=== PATIENT | female | born 1930 | race Two or more races ===

== ENCOUNTER 2016-06-26 14:10 | Inpatient (IN) | payer MEDICAID, MEDICARE ==
[~2016-06-26] VITALS: Ht 157.5 cm; Wt 65.8 kg
[2016-06-26] MEDS ORDERED: KETOROLAC TROMETHAMINE INJ 30 MG/ML VIAL ONE (14:20)
[2016-06-26] MEDS ORDERED: DIAZEPAM 5 MG TABLET ONE (14:20)
[2016-06-26] MEDS ORDERED: CARV25TA2 PO (14:56)
[2016-06-26] MEDS ORDERED: LEVO25TA9 PO (14:56)
[2016-06-26] MEDS ORDERED: NITR100C15 PO (14:56)
[2016-06-26] MEDS ORDERED: FURO-144 PO (14:56)
[2016-06-26] MEDS ORDERED: LISI-603 PO (14:56)
[2016-06-26] MEDS ORDERED: ACET-2605 PO (14:56)
[2016-06-26] MEDS ORDERED: ASPI-991 PO (14:56)
[2016-06-26] MEDS ORDERED: BISA10SU8 RC (14:56)
[2016-06-26] MEDS ORDERED: LORA0.5T PO (14:56)
[2016-06-26] MEDS ORDERED: AMLO2.5T PO (14:56)
[2016-06-26] MEDS ORDERED: OMEP20CA10 PO (14:56)
[2016-06-26] MEDS ORDERED: MAGN400O6 PO (14:56)
[2016-06-26] MEDS ORDERED: DONE5TAB3 PO (14:56)
[2016-06-26] MEDS ORDERED: ALEN70TA3 PO (14:56)
[2016-06-26] MEDS ORDERED: TRAM50TA2 PO (14:56)
[2016-06-26] MEDS ORDERED: SIMV20TA6 PO (14:56)
[2016-06-26] MEDS ORDERED: NA P133E RC (14:56)
[2016-06-26] MEDS ORDERED: ESCI10TA PO (14:56)
[2016-06-26] MEDS ORDERED: UBID100C13 PO (14:57)
[2016-06-26 15:23] LABS: BASOPHILS # (AUTO) 0.2 /CMM (0.0-0.2); BASOPHILS % (AUTO) 3.2 % (0.0-2.0); DIFF TOTAL % 100 %; EOSINOPHILS % (AUTO) 0.1 % (0.0-6.0); HEMATOCRIT 33 % (33-45); HEMOGLOBIN 10.6 g/dL (11.5-14.8); LYMPHOCYTES # (AUTO) 0.9 /CMM (0.8-4.8); LYMPHOCYTES % (AUTO) 11.8 % (20.0-44.0); MEAN CORPUSCULAR HEMOGLOBIN 29 PG (26.0-33.0); MEAN CORPUSCULAR HGB CONC 33 g/dl (31.0-36.0); MEAN CORPUSCULAR VOLUME 88 fL (82-100); MONOCYTES # (AUTO) 0.8 /CMM (0.1-1.30); MONOCYTES % (AUTO) 10.7 % (2.0-12.0); NEUTROPHILS # (AUTO) 5.9 /CMM (1.8-8.9); NEUTROPHILS % (AUTO) 74.2 % (43.0-81.0); PLATELET COUNT (AUTO) 311 /CMM (150-450); RED BLOOD CELL COUNT(AUTO) 3.73 MIL/uL (4.0-5.2); WHITE BLOOD COUNT (AUTO) 7.8 K/uL (4.3-11.0)
[2016-06-26] MEDS ORDERED: IV NS 0.9% 500 ML IV ONE (15:23)
[2016-06-26] MEDS ORDERED: IV SET PRIMARY PUMP SET 1 EA INFUS.SET MC ONE (15:23)
[2016-06-26 15:25] LABS: CALCIUM, SERUM 7.9 mg/dL (8.5-10.1); CREATININE 0.7 mg/dL (0.6-1.3); POTASSIUM 3.8 mmol/L (3.5-5.1)
[2016-06-26] MEDS ORDERED: IV NS 0.9% 500 ML BAG IV ONE (15:30)
[2016-06-26 15:31] LABS: ALBUMIN 1.8 g/dL (3.4-5.0); BILIRUBIN,DIRECT 0.1 mg/dL (0.0-0.2); BILIRUBIN,TOTAL 0.3 mg/dL (0.2-1.0); INDIRECT BILIRUBIN 0.2 mg/dL (0.0-1.1)
[2016-06-26 15:33] LABS: TROPONIN I 0.031 ng/mL (0.00-0.056)
[2016-06-26 15:36] LABS: INR 1.04 (0.87-1.13); PROTHROMBIN TIME 10.9 SECS (9.5-12.7)
[2016-06-26 15:47] LABS: LACTIC ACID 1.2 mmol/L (0.4-2.0)
[2016-06-26 15:52] LABS: ADD UA MICROSCOPIC YES; KETONES,URINE Negative (NEGATIVE); LEUKOCYTE ESTERASE ,URINE Large (NEGATIVE)
[2016-06-26 15:53] LABS: ADD URINE CULTURE YES
[2016-06-26] MEDS ORDERED: CEFTRIAXONE 1GM BAG (ER ONLY) 1 GM/50 ML PIGGYBACK IV ONE (17:30)
[2016-06-26] MEDS ORDERED: CEFTRIAXONE 1GM BAG (ER ONLY) 50 ML IV ONE (17:51)
[2016-06-26 18:00] VITALS: BP 142/82
[2016-06-26 20:00] VITALS: BP 124/62
[2016-06-26 22:00] VITALS: BP 124/62
[2016-06-27] VITALS (7 sets, daily range): BP systolic 115–133; BP diastolic 56–68
[2016-06-27] MEDS ORDERED: IV SET PRIMARY PUMP SET 1 EA INFUS.SET MC ONE (01:48)
[2016-06-27] MEDS: IV NS 0.9% 1,000 ML BAG IV SCH ×2 (01:56→13:41)
[2016-06-27] MEDS ORDERED: ACETAMINOPHEN ES 500 MG TABLET PO PRN ×2 (02:30→13:30)
[2016-06-27] MEDS ORDERED: TRAMADOL HCL 50 MG TABLET PO PRN (02:30)
[2016-06-27] MEDS ORDERED: ACETAMINOPHEN ES 500 MG TABLET ONE (04:38)
[2016-06-27 06:42] LABS: BASOPHILS % (AUTO) 0.2 % (0.0-2.0); DIFF TOTAL % 100 %; EOSINOPHILS % (AUTO) 0.1 % (0.0-6.0); HEMATOCRIT 30 % (33-45); HEMOGLOBIN 9.8 g/dL (11.5-14.8); LYMPHOCYTES # (AUTO) 0.5 /CMM (0.8-4.8); LYMPHOCYTES % (AUTO) 7.3 % (20.0-44.0); MEAN CORPUSCULAR HEMOGLOBIN 29 PG (26.0-33.0); MEAN CORPUSCULAR HGB CONC 33 g/dl (31.0-36.0); MEAN CORPUSCULAR VOLUME 89 fL (82-100); MONOCYTES # (AUTO) 0.6 /CMM (0.1-1.30); MONOCYTES % (AUTO) 8.2 % (2.0-12.0); NEUTROPHILS # (AUTO) 5.9 /CMM (1.8-8.9); NEUTROPHILS % (AUTO) 84.2 % (43.0-81.0); PLATELET COUNT (AUTO) 342 /CMM (150-450); RED BLOOD CELL COUNT(AUTO) 3.36 MIL/uL (4.0-5.2)
[2016-06-27 06:59] LABS: CALCIUM, SERUM 8.1 mg/dL (8.5-10.1); CREATININE 0.7 mg/dL (0.6-1.3); POTASSIUM 3.9 mmol/L (3.5-5.1)
[2016-06-27] MEDS ORDERED: CO Q10 PO SCH (13:00)
[2016-06-27] MEDS ORDERED: LORAZEPAM 0.5 MG TABLET PO PRN (13:00)
[2016-06-27] MEDS ORDERED: MAGNESIUM HYDROXIDE 30 ML UDC PO PRN (13:00)
[2016-06-27] MEDS ORDERED: BISACODYL SUPP (10 MG) 10 MG/SUPP.RECT SUPP.RECT RC PRN (13:00)
[2016-06-27] MEDS ORDERED: NA PHOS,M-B/NA PHOS,DI-BA 1 EA ENEMA RC PRN (13:00)
[2016-06-27] MEDS: FUROSEMIDE 40 MG TABLET PO SCH (13:41)
[2016-06-27] MEDS: LEVOTHYROXINE SODIUM 25 MCG TABLET PO SCH (13:41)
[2016-06-27] MEDS: ESCITALOPRAM OXALATE (10 MG) 10 MG TABLET PO SCH (13:41)
[2016-06-27] MEDS: LISINOPRIL (20MG) 20 MG TABLET PO SCH ×2 (13:42→16:31)
[2016-06-27] MEDS: PANTOPRAZOLE 40 MG TABLET.DR PO SCH (13:43)
[2016-06-27] MEDS: CARVEDILOL 12.5 MG TABLET PO SCH ×2 (13:43→21:00)
[2016-06-27] MEDS ORDERED: SECONDARY IV SET 1 EA INFUS.SET MC ONE (16:18)
[2016-06-27] MEDS: TRAMADOL HCL 50 MG TABLET PO PRN (16:28)
[2016-06-27] MEDS: CEFTRIAXONE 1 G in IV D5W 50 ML IV SCH (16:31)
[2016-06-27] MEDS ORDERED: CEFTRIAXONE 1 G VIAL IV SCH (17:30)
[2016-06-27] MEDS ORDERED: CEFTRIAXONE 1 G VIAL IM SCH (17:30)
[2016-06-27] MEDS: DONEPEZIL 5 MG TABLET PO SCH (18:13)
[2016-06-27] MEDS: SIMVASTATIN 20 MG TABLET PO SCH (21:12)
[2016-06-28] MEDS: LEVOTHYROXINE SODIUM 25 MCG TABLET PO SCH (06:22)
[2016-06-28] MEDS: IV NS 0.9% 1,000 ML IV PRN (06:22)
[2016-06-28] MEDS: PANTOPRAZOLE 40 MG TABLET.DR PO SCH (06:22)
[2016-06-28] MEDS: TRAMADOL HCL 50 MG TABLET PO PRN ×2 (06:23→13:06)
[2016-06-28 08:00] VITALS: BP 133/68
[2016-06-28] MEDS: ESCITALOPRAM OXALATE (10 MG) 10 MG TABLET PO SCH (08:43)
[2016-06-28] MEDS: LISINOPRIL (20MG) 20 MG TABLET PO SCH ×2 (08:43→17:12)
[2016-06-28] MEDS: FUROSEMIDE 40 MG TABLET PO SCH (08:43)
[2016-06-28] MEDS: CARVEDILOL 12.5 MG TABLET PO SCH ×2 (08:44→21:51)
[2016-06-28] MEDS ORDERED: GUAIFENESIN/D-METHORPHAN HB 5 ML UDC PO PRN (10:00)
[2016-06-28 16:00] VITALS: BP 138/69
[2016-06-28] MEDS: DONEPEZIL 5 MG TABLET PO SCH (17:12)
[2016-06-28] MEDS: CEFTRIAXONE 1 G in IV D5W 50 ML IV SCH (17:12)
[2016-06-28 20:00] VITALS: BP 123/69
[2016-06-28 20:52] VITALS: BP 123/59
[2016-06-28] MEDS: SIMVASTATIN 20 MG TABLET PO SCH (21:52)
[2016-06-29 06:00] VITALS: BP 130/86
[2016-06-29] MEDS: IV NS 0.9% 1,000 ML IV PRN (06:44)
[2016-06-29] MEDS ORDERED: ALENDRONATE 70 MG TABLET PO SCH (07:30)
[2016-06-29 08:00] VITALS: BP 147/62
[2016-06-29] MEDS: FUROSEMIDE 40 MG TABLET PO SCH (08:25)
[2016-06-29] MEDS: PANTOPRAZOLE 40 MG TABLET.DR PO SCH (08:26)
[2016-06-29] MEDS: LEVOTHYROXINE SODIUM 25 MCG TABLET PO SCH (08:26)
[2016-06-29] MEDS: ESCITALOPRAM OXALATE (10 MG) 10 MG TABLET PO SCH (08:26)
[2016-06-29 08:27] VITALS: BP 147/62
[2016-06-29] MEDS: LISINOPRIL (20MG) 20 MG TABLET PO SCH (08:27)
[2016-06-29] MEDS: CARVEDILOL 12.5 MG TABLET PO SCH (08:27)
[2016-07-02] MEDS ORDERED: ASPIRIN EC 81 MG TABLET.DR PO SCH (09:00)
== END 2016-06-29 13:15 | DRG 689 ==
LOC: ER 14:16 → TELE 17:40 → MED 06-27 11:54
PROVIDERS: ADMIT Internal Medicine Nephrology; ATTEND Internal Medicine Nephrology
DX: N39.0 Urinary tract infection, site not specified (principal); G92 Toxic encephalopathy; E46 Unspecified protein-calorie malnutrition; K21.9 Gastro-esophageal reflux disease without esophagitis; E03.9 Hypothyroidism, unspecified; F41.9 Anxiety disorder, unspecified; F03.90 Unspecified dementia, unspecified severity, without behavioral disturbance, psychotic disturbance, mood disturbance, and anxiety; I11.9 Hypertensive heart disease without heart failure; I11.0 Hypertensive heart disease with heart failure; D64.9 Anemia, unspecified; I70.0 Atherosclerosis of aorta
CPT/HCPCS: 36415; 71010-TC; 80048-TC; 80076-TC; 81000-TC; 83605-TC; 84484-TC; 85025-TC; 85730-TC; 87040-TC; 87086-TC; 87186-TC; 87400; 97001-TC; A4606; J0696; J1885; J7030; J7040; J7060; Z7610